=== PATIENT | female | born 1945 | race Caucasian/White ===

== ENCOUNTER 2020-10-23 12:51 | Emergency (ER) | payer BC, MEDICARE ==
[~2020-10-23] VITALS: Ht 147.3 cm; Wt 50.0 kg
[2020-10-23] MEDS ORDERED: morphine 4 MG/ML inj SYRINge IM ONE (14:05)
[2020-10-23] MEDS ORDERED: ondansetron 4mg rapidly disintigrating tab PO ONE (14:05)
[2020-10-23] MEDS ORDERED: morphine 4 MG/ML inj SYRINge IV ONE (14:25)
[2020-10-23] MEDS ORDERED: HYDR-3965 PO (14:26)
[2020-10-23] MEDS ORDERED: ONDA4TAB6 PO (14:26)
[2020-10-23] MEDS ORDERED: ondansetron/PF 4mg/2ml inj IV ONE (15:15)
[2020-10-23 16:08] VITALS: BP 114/62
== END 2020-10-23 16:10 | disposition home or self-care (01) ==
LOC: ER 12:53
DX: S42.301A Unspecified fracture of shaft of humerus, right arm, initial encounter for closed fracture (principal); M25.511 Pain in right shoulder; Z88.0 Allergy status to penicillin; Z88.8 Allergy status to other drugs, medicaments and biological substances; Z79.899 Other long term (current) drug therapy; W19.XXXA Unspecified fall, initial encounter; Y93.89 Activity, other specified; Y92.89 Other specified places as the place of occurrence of the external cause; Y99.8 Other external cause status
CPT/HCPCS: 29105; 73030; 73502; 73564; 96374; 96375; 99284; J2270; J2405